=== PATIENT | female | born 1975 | race Caucasian/White ===

== ENCOUNTER 2016-12-31 14:05 | Emergency (ER) | payer BC ==
[2016-12-31 15:31] VITALS: BP 123/72
--- NOTE | 2016-12-31 16:30 | UC ---
Dizzy HPI HPI Summary: 41 yo female with onset of vertigo this am cold/clammy at times some nausea no cid no ring/roaring in ears hx of similar symptoms about a week ago ears have felt full for a week no URI symptoms has had reconstructive surgery on her left TM - History Of Current Complaint Chief Complaint: UCGeneralIllness Stated Complaint: DIZZY Time Seen by Provider: 12/31/16 16:15 Hx Last Menstrual Period: 12/24/16 Onset/Duration: Sudden Onset, Lasting Hours Timing: Constant Severity Initially: Severe Severity Currently: Mild Pain Intensity: 0 Pain Scale Used: 0-10 Numeric Character: Room Spinning Aggravating Factor(s): Position Change, Change In Head Position Associated Signs And Symptoms: Positive: Nausea - Allergies/Home Medications Allergies/Adverse Reactions: Allergies Allergy/AdvReac Type Severity Reaction Status Date / Time No Known Allergies Allergy Verified 12/31/16 15:31 PMH/Surg Hx/FS Hx/Imm Hx Previously Healthy: Yes Endocrine History Of: Denies: Diabetes Cardiovascular History Of: Denies: Cardiac Disorders Respiratory History Of: Denies: Asthma - Surgical History Surgical History: Yes Surgery Procedure, Year, and Place: EAR TUBES AND RECONSTRUCTION OF EAR DRUM. CYSTECTOMY -- TAILBONE - Family History Known Family History: Positive: Hypertension, Diabetes - Social History Alcohol Use: None Substance Use Type: None Smoking Status (MU): Never Smoked Tobacco Review of Systems Constitutional: Negative Skin: Negative Eyes: Negative ENT: Negative Respiratory: Negative Cardiovascular: Negative Gastrointestinal: Negative Genitourinary: Negative Motor: Negative Neurovascular: Negative Musculoskeletal: Negative Neurological: Negative Psychological: Negative All Other Systems Reviewed And Are Negative: Yes Physical Exam Triage Information Reviewed: Yes Appearance: Well-Appearing, No Pain Distress, Well-Nourished Vital Signs: Initial Vital Signs Temp 99.1 F 12/31/16 15:28 Pulse 88 12/31/16 15:28 Resp 16 12/31/16 15:28 BP 123/72 12/31/16 15:28 Pulse Ox 100 12/31/16 15:28 Vital Signs Reviewed: Yes Eye Exam: Normal Eyes: Positive: Conjunctiva Clear, Other: - (-) nystagmus/eomi/perrl ENT: Positive: Pharynx normal, TM bulging - right. Negative: Hearing grossly normal - decreased hearing left ear, Pharyngeal erythema, Nasal congestion, Nasal drainage, TMs normal - unable to visualize left due to cerumen, Tonsillar swelling, Tonsillar exudate, Trismus, Muffled/hoarse voice Dental: Negative: Gross Decay/Caries @, Dental Fracture @, Abscess @ Neck: Positive: Supple, Nontender Respiratory: Positive: Lungs clear, Normal breath sounds, No respiratory distress, No accessory muscle use Cardiovascular: Positive: RRR, No Murmur. Negative: Tachycardia, Bradycardia Musculoskeletal: Positive: ROM Intact, No Edema Neurological Exam: Normal Neurological: Positive: Alert, Muscle Tone Normal Psychological Exam: Normal Skin Exam: Normal Dizzy Course/Dx - Course Course Of Treatment: pt declined ENT referral. she was advised not to drive - Differential Dx/Diagnosis Provider Diagnoses: vertigo. suspect BPPV Discharge - Discharge Plan Condition: Stable Disposition: HOME Prescriptions: Meclizine HCl [Meclizine 25] 25 mg PO QID PRN #20 tab PRN Reason: Vertigo Patient Education Materials: Vertigo (ED) Referrals: Non Staff,Doctor [Primary Care Provider] - Additional Instructions: recheck in 5-7 days if not better
== END 2016-12-31 16:41 | disposition home or self-care (01) ==
LOC: UCCORT 14:05
DX: R42 Dizziness and giddiness (principal)
CPT/HCPCS: 99212; G0463

== ENCOUNTER 2017-01-10 14:47 | Emergency (ER) | payer BC ==
[2017-01-10] MEDS ORDERED: Meclizine TAB* 12.5 MG PO ONE (16:09)
[2017-01-10 16:23] LABS: Hematocrit 32 % (35-47); Hemoglobin 9.8 g/dl (12.0-16.0); Mean Corpuscular HGB Conc 31 g/dl (31-36); Mean Corpuscular Hemoglobin 23 pg (27-31); Mean Corpuscular Volume 75 fL (80-97); Mean Platelet Volume 10 um3 (7.4-10.4); Red Blood Count 4.22 10^6/ul (4.0-5.4); Red Cell Distribution Width 17 % (10.5-15)
[2017-01-10 16:27] LABS: Comments Flag Yes
--- NOTE | 2017-01-10 16:33 | RAD ---
INDICATION: Vertigo. History of left ear/mastoid surgery. COMPARISON: None TECHNIQUE: Noncontrast axial source images were acquired from the skull base to the vertex. FINDINGS: Ventricles/sulci: The ventricles and cisterns are normal in size and configuration for age. Brain parenchyma: There is no focal parenchymal finding, evidence of intracranial mass, or intracranial mass effect. Intracranial hemorrhage:None. Extra-axial spaces: There are no abnormal extra axial fluid collections or evidence of extra-axial mass. Calvarium: There is no calvarial fracture or other calvarial abnormality. Scalp: There is no evidence of scalp or extracalvarial soft tissue abnormality. Paranasal sinuses/mastoid: There are postoperative changes about the middle ear cavity and left and the mastoid air cells. There is no pneumatization of the remaining mastoid air cells. Other: None. IMPRESSION: No acute findings. Postoperative change about the left middle ear cavity and mastoid air cells. Possible left-sided mastoiditis
[2017-01-10 16:34] LABS: ALT 12 U/L (7-52); AST 15 U/L (13-39); Albumin 4.1 g/dL (3.2-5.2); Alkaline Phosphatase 42 U/L (34-104); Anion Gap 7 mmol/L (2-11); BUN/Creatinine Ratio 16.4 (8-20); Blood Urea Nitrogen 11 mg/dL (6-24); CO2 Carbon Dioxide 24 mmol/L (22-32); Calcium 9.2 mg/dL (8.6-10.3); Chloride 104 mmol/L (101-111); Globulin 3.1 g/dL (2-4); Glucose 121 mg/dL (70-100); Potassium 3.3 mmol/L (3.5-5.0); Sodium 135 mmol/L (133-145); Total Protein 7.2 g/dL (6.4-8.9)
[2017-01-10] MEDS ORDERED: NS 0.9% 1000 ML* 1,000 ML IV ONE (18:18)
--- NOTE | 2017-01-10 19:09 | RAD ---
INDICATION: Dizziness COMPARISON: None. TECHNIQUE: PA and lateral dual-energy views were obtained. FINDINGS: Bones/Soft Tissues: There are no acute bony findings. Cardiomediastinal: The cardiomediastinal silhouette is normal. Lungs: There are no infiltrates. Pleura: There are no pleural effusions. Other: None IMPRESSION: NO ACTIVE DISEASE.
[2017-01-10 19:15] LABS: Iron 18 ug/dL (50-212); Total Iron Binding Capacity 540 mcg/dL (250-450); Transferrin 386 mg/dL (203-362)
[2017-01-10 19:34] LABS: Ferritin < 10.0 ng/mL (11-307)
[2017-01-10 20:13] LABS: UR Preg Internal Control QC Line Present
[2017-01-10] MEDS ORDERED: Ferrous Sulfate TAB* 325 MG PO ONE (20:13)
[2017-01-10 20:20] LABS: Urine Bacteria Absent (Absent); Urine Bilirubin Negative (Negative); Urine Glucose Negative (Negative); Urine Nitrite Negative (Negative)
[2017-01-10 20:56] LABS: Manual Entry Verification CAR0052
[2017-01-10 20:59] LABS: Hematocrit 32 % (35-47); Hemoglobin 9.7 g/dl (12.0-16.0); Mean Corpuscular HGB Conc 31 g/dl (31-36); Mean Corpuscular Hemoglobin 23 pg (27-31); Mean Corpuscular Volume 75 fL (80-97); Mean Platelet Volume 8 um3 (7.4-10.4); Red Cell Distribution Width 17 % (10.5-15); White Blood Count 15.7 10^3/ul (3.5-10.8)
[2017-01-10] MEDS ORDERED: Sulfamethox/Trimethoprim SS 400/80* TAB PO ONE (21:44)
[2017-01-10] MEDS ORDERED: Sulfamethox/Trimethoprim DS 800/160* TAB PO ONE (22:15)
[2017-01-10 22:27] VITALS: BP 106/67
--- NOTE | 2017-01-25 20:58 | ED ---
Jimy Raza Michael, scribed for Vignesh Arrieta MD on 01/10/17 at 1532 . Dizziness - HPI Summary HPI Summary: 41 y/o female was BIBA to the ED presenting with intermittent episodes of dizziness that started today at 1230. When the pt describes the dizziness she cannot differentiate if the room is spinning or her head is spinning. She states the dizziness was worsened with moving earlier in the day. Currently position change does not aggravate the dizziness. The dizziness is alleviated by nothing including one dose of Meclizine that was taken at 1300 today. The pt also c/o nausea and diaphoresis. She denies ear ache, chest pain, diarrhea, chills, and nasal congestion. The pt reports that she has had prior episodes of dizziness 2 weeks ago and has been recently dx with vertigo. She notes her current episode of dizziness is worse than the episodes in the past 2 weeks. The SHx is significant for ear drum reconstruction. - History Of Current Complaint Chief Complaint: EDDizziness Stated Complaint: DIZZINESS Time Seen by Provider: 01/10/17 15:25 Hx Obtained From: Patient, Medical Records Onset/Duration: Still Present Timing: Intermittent Episode Lasting Severity Initially: Moderate Severity Currently: Moderate Character: Head Spinning, Room Spinning, Dizzy Aggravating Factor(s): Position Change Alleviating Factor(s): Nothing Associated Signs And Symptoms: Positive: Negative - ear ache. nasal congestion. , Nausea, Diaphoresis. Negative: Vomiting, Diarrhea, Chest Pain, Chills - Allergies/Home Medications Allergies/Adverse Reactions: Allergies Allergy/AdvReac Type Severity Reaction Status Date / Time No Known Allergies Allergy Verified 12/31/16 15:31 PMH/Surg Hx/FS Hx/Imm Hx Endocrine/Hematology History: Denies: Hx Diabetes Respiratory History: Denies: Hx Asthma Neurological History: Reports: Other Neuro Impairments/Disorders - vertigo - Surgical History Surgery Procedure, Year, and Place: EAR TUBES AND RECONSTRUCTION OF EAR DRUM. CYSTECTOMY -- TAILBONE Infectious Disease History: No Infectious Disease History: Denies: Traveled Outside the [place] in Last 30 Days - Family History Known Family History: Positive: Hypertension, Diabetes Family History: negative CVA. negative blood clots. - Social History Occupation: Employed Full-time Lives: With Family Alcohol Use: None Substance Use Type: Reports: None Smoking Status (MU): Never Smoked Tobacco Review of Systems Positive: Skin Diaphoresis. Negative: Fever, Chills Negative: Erythema Negative: Sore Throat, Ear Ache, Nasal Discharge Negative: Chest Pain Negative: Shortness Of Breath, Cough Positive: Nausea. Negative: Abdominal Pain, Vomiting Negative: dysuria, hematuria Negative: Edema - bilat LE Negative: Rash Neurological: Other - dizziness All Other Systems Reviewed And Are Negative: Yes Physical Exam - Summary Physical Exam Summary: NORMAL NEURO EXAM ADULT Constitutional: Well-developed, Well-nourished, Alert. (-) Distressed Skin: Warm, Dry HENT: Eyes: Conjunctiva normal. Cerumen impact of left ear. Neck: Musculoskeletal ROM normal neck. (-) JVD, (-) Stridor, (-) Tracheal deviation Cardio: Rhythm regular, ~~rate normal, Heart sounds normal; Intact distal pulses ; The pedal pulses are 2+ and symmetric. Radial pulses are 2+ and symmetric. (- ) Murmur Pulmonary/Chest wall: Effort normal. (-) Respiratory distress, (-) Wheezes, (-) Rales Abd: Soft. (-) Tenderness, ~(-) Distension, (-) Guarding, (-) Rebound Musculoskeletal: (-) Edema Lymph: (-) Cervical adenopathy Neuro: Alert, Oriented x3, Strength normal, Cranial nerves II-XII are grossly intact. (-) Dysmetria, (-) Nystagmus, (-) Ataxia by finger to nose testing, (-) Sensory deficit. Ariadna hallpike equivocal. Psych: Mood and affect Yodit Triage Information Reviewed: Yes Vital Signs On Initial Exam: Initial Vitals Temp Pulse Resp BP Pulse Ox 99.3 F 87 18 101/62 99 01/10/17 15:19 01/10/17 15:19 01/10/17 15:19 01/10/17 15:19 01/10/17 15:19 Vital Signs Reviewed: Yes Procedures - Procedure Summary Procedure Summary: Cerumen blockage procedure with warm water: cerumen removed Diagnostics - Vital Signs Vital Signs Temp Pulse Resp BP Pulse Ox 01/10/17 15:19 99.3 F 87 18 101/62 99 - Laboratory Result Diagrams: 01/10/17 20:53 01/10/17 15:29 Lab Statement: Any lab studies that have been ordered have been reviewed, and results considered in the medical decision making process. - Radiology CXR Xray Interpretation: No Acute Changes Radiology Interpretation Completed By: Radiologist - CT Brain CT CT Interpretation: Positive (See Comments) - No acute findings. Postoperative change about the left middle ear cavity and mastoid air cells. Possible left- sided mastoiditis CT Interpretation Completed By: Radiologist Re-Evaluation - Re-Evaluation 1st Re-Evaluation Time: 18:26 Change: Improved Comment: pt blood pressure is 90 systolic. She is anemic and notes being anemic before. There is no black stool or blood in her stool. Fluids are effuising. Dizzy Course/Dx - Course Course Of Treatment: believe that the veritgo was due to cerumen impact and UTI. - Diagnoses Provider Diagnoses: Positional vertigo Discharge - Discharge Plan Condition: Improved Disposition: HOME Patient Education Materials: Vertigo (ED) [place] [facility]] Additional Instructions: You will follow up with [facility] within the next 3-4 days. Return to the ED if your symptoms worsen. The documentation as recorded by the Jimy infante Michael accurately reflects the service I personally performed and the decisions made by me, Vignesh Arrieta MD.
== END 2017-01-10 22:27 | disposition home or self-care (01) ==
LOC: ED 14:47
DX: R42 Dizziness and giddiness (principal)
CPT/HCPCS: 36415; 70450; 71020; 80053; 81003; 81015; 81025; 82728; 83540; 83550; 85027; 87086; 96360; 99284; A9270-GY

== ENCOUNTER 2017-10-09 16:46 | Emergency (ER) | payer BC ==
[2017-10-09 17:34] VITALS: BP 109/70
--- NOTE | 2017-10-09 18:28 | UC ---
Laceration HPI - HPI Summary HPI Summary: LEFT THUMB LAC. THIS TONI WHILE USING A PRODUCTION CHECKER CUT HER THUMB ON ONE BLADES. BleEDING IS CONTROLLED. PT IS LEFT HANDED. not sure of previous Tdap. no other injury or complaint [ End ] - History Of Current Complaint Chief Complaint: UCLaceration Stated Complaint: LEFT THUMB LAC Time Seen by Provider: 10/09/17 18:10 Hx Obtained From: Patient Hx Last Menstrual Period: 09/29/17 Aggravating Factors: Nothing Related History: Dominant Hand Left - Allergies/Home Medications Allergies/Adverse Reactions: Allergies Allergy/AdvReac Type Severity Reaction Status Date / Time No Known Allergies Allergy Verified 10/09/17 17:29 Home Medications: Home Medications NK [No Home Medications Reported] 10/09/17 [History Confirmed 10/09/17] PMH/Surg Hx/FS Hx/Imm Hx Previously Healthy: Yes - Surgical History Surgical History: Yes Surgery Procedure, Year, and Place: EAR TUBES AND RECONSTRUCTION OF EAR DRUM. CYSTECTOMY -- TAILBONE - Family History Known Family History: Positive: Hypertension, Diabetes Family History: negative CVA. negative blood clots. - Social History Occupation: Employed Full-time Lives: With Family Alcohol Use: None Substance Use Type: None Smoking Status (MU): Never Smoked Tobacco - Immunization History Most Recent Tetanus Shot: UNKNOWN Review of Systems Skin: Other - thumb lac All Other Systems Reviewed And Are Negative: Yes Physical Exam Triage Information Reviewed: Yes Appearance: Well-Appearing, No Pain Distress, Well-Nourished Vital Signs: Initial Vital Signs Temp 99.5 F 10/09/17 17:29 Pulse 79 10/09/17 17:29 Resp 16 10/09/17 17:29 BP 109/70 10/09/17 17:29 Pulse Ox 99 10/09/17 17:29 Vital Signs Reviewed: Yes Respiratory Exam: Normal Cardiovascular Exam: Normal Musculoskeletal Exam: Normal Musculoskeletal: Positive: Strength Intact, ROM Intact Neurological Exam: Normal Psychological Exam: Normal Skin: Positive: Other - left palmar aspect of thumb with linear vertical superficial distal thumb lac on the finger pad. not bleeding with and without movement. FROM of joint. does not extend to tip of finger or in to the joint. cap refill < 3 sec. peripheral pulses intact. Laceration Course/Dx - Course/Dx Course Of Treatment: Did not need to suture as it was not bleeding, superficial and no at joint with significant tension. used skin glue, steri strips, 4x4/ bulk dressing and pressure at this time with coban and tolerated procedure well and minimal blood loss. clean cut and irrigated nicely with in 1 hour of cut. no antibiotics at this time but she is aware of any redness or infection setting in to be seen by medical professional - Differential Dx - Laceration/Wound Provider Diagnoses: Left thumb laceration Discharge - Discharge Plan Condition: Good Disposition: HOME Patient Education Materials: Laceration (ED) Referrals: No Primary Care Phys,NOPCP [Primary Care Provider] - Additional Instructions: You have been given a tetanus shot. Please follow up with your primary care physician if there are any concerns.
[2017-10-09] MEDS ORDERED: Tetan/Diph/Pertus SYR(Tdap)* 0.5 ML SYR(BOOSTRIX) use SYR IM ONE (18:34)
[2017-10-09] MEDS ORDERED: Gelfoam 12-7 ADSORBABL SPONGE* 1 EA SPONGE TOPICAL ONE (18:37)
== END 2017-10-09 19:07 | disposition home or self-care (01) ==
LOC: UCCORT 16:46
DX: S61.012A Laceration without foreign body of left thumb without damage to nail, initial encounter (principal); W29.1XXA Contact with electric knife, initial encounter; Y93.9 Activity, unspecified; Y92.9 Unspecified place or not applicable; Y99.9 Unspecified external cause status
CPT/HCPCS: 90471; 90715; 99212; A9270-GY; G0463

== ENCOUNTER 2017-11-14 10:50 | Emergency (ER) | payer BC ==
--- NOTE | 2017-11-14 11:19 | UC ---
Complaint Female HPI - HPI Summary HPI Summary: 42 year old female presents with complains of painful urination and burning. - History Of Current Complaint Stated Complaint: URINARY Time Seen by Provider: 11/14/17 11:18 Hx Last Menstrual Period: 09/29/17 Onset/Duration: Sudden Onset Timing: Constant Severity Initially: Moderate Severity Currently: Moderate Character: Sharp, Burning - Allergies/Home Medications Allergies/Adverse Reactions: Allergies Allergy/AdvReac Type Severity Reaction Status Date / Time No Known Allergies Allergy Verified 10/09/17 17:29 PMH/Surg Hx/FS Hx/Imm Hx Previously Healthy: Yes - Surgical History Surgical History: Yes Surgery Procedure, Year, and Place: EAR TUBES AND RECONSTRUCTION OF EAR DRUM. CYSTECTOMY -- TAILBONE - Family History Known Family History: Positive: Hypertension, Diabetes Family History: negative CVA. negative blood clots. - Social History Alcohol Use: None Substance Use Type: None Smoking Status (MU): Never Smoked Tobacco - Immunization History Most Recent Tetanus Shot: UNKNOWN Review of Systems Constitutional: Negative Skin: Negative Eyes: Negative ENT: Negative Respiratory: Negative Cardiovascular: Negative Gastrointestinal: Negative Genitourinary: Frequency, Urgency Motor: Negative Neurovascular: Negative Musculoskeletal: Negative Neurological: Negative Psychological: Negative All Other Systems Reviewed And Are Negative: Yes Physical Exam Triage Information Reviewed: Yes Vital Signs Reviewed: Yes Eye Exam: Normal ENT Exam: Normal Dental Exam: Normal Neck exam: Normal Neck: Positive: 1 Respiratory Exam: Normal Cardiovascular Exam: Normal Abdominal Exam: Normal Musculoskeletal Exam: Normal Neurological Exam: Normal Psychological Exam: Normal Skin Exam: Normal Complaint Female Dx - Differential Dx/Diagnosis Provider Diagnoses: uti Discharge - Discharge Plan Condition: Stable Disposition: HOME Prescriptions: Nitrofurantoin Monohyd Macro [Macrobid] 100 mg PO BID #14 cap Patient Education Materials: Urinary Tract Infection in Women (ED) Referrals: No Primary Care Phys,NOPCP [Primary Care Provider] -
[2017-11-14 11:28] VITALS: BP 120/77
== END 2017-11-14 11:51 | disposition home or self-care (01) ==
LOC: UCCORT 10:50
DX: N39.0 Urinary tract infection, site not specified (principal)
CPT/HCPCS: 81003; 87077; 87086; 87186; 99212; G0463